=== PATIENT | female | born 1990 | race Caucasian/White ===

== ENCOUNTER → 2023-06-28 | Outpatient (CLI) | payer BC ==
[~2023-06-28] MED LIST: AMOX500C; CIPR-249 PO; ONDA-83; PYRI1TAB5 PO; ZOFR4TAB16 PO
[2023-06-28 16:05] LABS: HEMOGLOBIN A1c 5.2 % (4.0-6.0)
[2023-06-28 16:13] LABS: FREE T4 1.14 NG/DL (0.89-1.76)
[2023-06-28 16:22] LABS: PROLACTIN 6.88 NG/ML; THYROID STIMULATING HORMONE 2.517 uIU/ML (0.55-4.78)
== END ==
LOC: M PLALAB 11:44
PROVIDERS: ATTEND Nurse Practitioner Family
DX: N92.6 Irregular menstruation, unspecified (principal)

== ENCOUNTER → 2023-09-26 | Outpatient (REF) | payer BC | LOC: M SFHCWAGY 15:29 | PROVIDERS: ATTEND Nurse Practitioner Family | DX: Z12.4 Encounter for screening for malignant neoplasm of cervix (principal) | CPT/HCPCS: 87624; G0123 ==

== ENCOUNTER → 2023-10-16 | Outpatient (CLI) | payer BC | LOC: M WHC 14:55 | PROVIDERS: ATTEND Nurse Practitioner Family | DX: N92.6 Irregular menstruation, unspecified (principal) ==

== ENCOUNTER → 2023-12-26 | Outpatient (CLI) | payer BC ==
[2023-12-26 15:49] LABS: ESTRADIOL 92.3 PG/ML; FOLLICLE STIMULATING HORMONE 1.7 mIU/ML; LUTEINIZING HORMONE 1.7 mIU/ML
[2023-12-26 15:55] LABS: HCG, SERUM QUALITATIVE NEGATIVE (NEGATIVE)
== END ==
LOC: M PLALAB 12:30
PROVIDERS: ATTEND Nurse Practitioner Family
DX: N91.1 Secondary amenorrhea (principal)